=== PATIENT | female | born 1985 | race Caucasian/White ===

== ENCOUNTER 2017-02-28 19:02 | Emergency (ER) ==
[2017-02-28 19:09] VITALS: BP 127/86; TEMP 98.6; BMI 31.6
[2017-02-28] MEDS ORDERED: DECADRON 4 MG/ML SDV IM STA (19:17)
[2017-02-28] MEDS ORDERED: ZOFRAN 4 MG/2 ML IM STA (19:17)
[2017-02-28] MEDS ORDERED: TORADOL IM STA (19:17)
[2017-02-28] MEDS ORDERED: DILAUDID 2 MG/ML SYRINGE IM STA (19:17)
--- NOTE | 2017-02-28 19:21 | ED.PDOC ---
General ED Provider: Dr. DAVID SEARS-ER Chief Complaint: Back Pain Stated Complaint: i got out of bed and my back hurts and goes down both legs-hx of spinal stenosis Time Seen by Physician: 19:19 Mode of Arrival: Walk-In Information Source: Patient Exam Limitations: No limitations Primary Care Provider: DAVID SEARS Nursing and Triage Documentation Reviewed and Agree: Yes Musculoskeletal Complaint Exam - Back Pain Complaint/Exam Mechanism of Injury: Reports: No known trauma Onset/Duration: several days Symptoms Are: Still present Timing: Constant Episodes Lasting: Days Initial Severity: Mild Current Severity: Moderate Location: Reports: Discrete Character: Reports: Dull, Aching, Spasmodic, Stiffness Aggravating: Reports: Movements, Lifting, Bending Alleviating: Reports: None Associated Signs and Symptoms: Reports: Numbness. Denies: Swelling, Redness, Bruising, Fever, Weakness, Tingling, Abdominal pain, Flank pain, Bladder incontinence, Bowel incontinence, Weight loss Related History: Reports: Previous back injury AAA Risk Factors: Reports: None Cauda Equina Risk Factors: Reports: None Epidural Abcess Risk Factors: Reports: None Related Surgical History: Reports: None Focal Tenderness: Yes Paraspinal Muscle Tenderness: Yes Paraspinal Muscle Spasm: No Scoliosis: No Lordosis: No Kyphosis: No SLR Test: Right Negative, Left Negative Hip Motion Testing Pain: Right Negative, Left Negative Focal Weakness: Present: None Focal Sensory Loss: Present: None Gait: Present: Abnormal Differential Diagnoses: Herniated Disk Review of Systems - Review Of Systems Constitutional: Reports: No symptoms Eyes: Reports: No symptoms Ears, Nose, Mouth, Throat: Reports: No symptoms Respiratory: Reports: No symptoms Cardiac: Reports: No symptoms GI: Reports: No symptoms : Reports: No symptoms Musculoskeletal: Reports: Back pain, Muscle pain Skin: Reports: No symptoms Neurological: Reports: No symptoms Endocrine: Reports: No symptoms Hematologic/Lymphatic: Reports: No symptoms All Other Systems: Reviewed and Negative Past Medical History - Past Medical History Previously Healthy: Yes Endocrine: Reports: None Cardiovascular: Reports: None Respiratory: Reports: None Hematological: Reports: None Gastrointestinal: Reports: None Genitourinary: Reports: None Neuro/Psych: Reports: Migraine Musculoskeletal: Reports: Other (Fibromyalgia ) Cancer: Reports: None Last Menstrual Period: 2 WEEKS AGO - Surgical History General Surgical History: Reports: Tonsillectomy - Family History Family History: Reports: Other (father in severe mva) - Social History Smoking Status: Never smoker Hx Substance Use: No Alcohol Screening: None Lives: With family - Immunizations Tetanus Shot up to Date: (UNKNOWN) Physical Exam - Physical Exam Appearance: Well-appearing, No pain distress, Well-nourished Pain Distress: Moderate Eyes: RAMON, EOMI, Conjunctiva clear ENT: Ears normal, Nose normal, Oropharynx normal Neck: Supple Respiratory: Airway patent, Breath sounds clear, Breath sounds equal, Respirations nonlabored Cardiovascular: RRR, Pulses normal, No rub, No murmur GI/: Soft, Nontender, No masses, Bowel sounds normal, No Organomegaly Musculoskeletal: Limited ROM Skin: Warm, Dry, Normal color Neurological: Sensation intact, Motor intact, Reflexes intact, Cranial nerves intact, Alert, Oriented Psychiatric: Affect appropriate, Mood appropriate Critical Care Note - Critical Care Note Total Time (mins): 0 Course - Course Orders, Labs, Meds: Orders Category Date Time Status Dexamethasone 4 mg/ml Inj [Decadron 4 mg/ml Sdv] MEDS 02/28/17 19:17 Stat 4 mg IM ONCE STA Hydromorphone HCl/Pf [Dilaudid 2 mg/ml Syringe] MEDS 02/28/17 19:17 Stat 2 mg IM ONCE STA Ketorolac Tromethamine [Toradol] MEDS 02/28/17 19:17 Stat 60 mg IM ONCE STA Ondansetron HCl/Pf [Zofran 4 mg/2 ml] MEDS 02/28/17 19:17 Stat 4 mg IM ONCE STA Medications Generic Name Dose Route Start Last Admin Trade Name Freq PRN Reason Stop Dose Admin Dexamethasone Sodium Phosphate 4 mg 02/28/17 19:17 Decadron 4 Mg/Ml Sdv IM 02/28/17 19:18 ONCE STA Hydromorphone HCl 2 mg 02/28/17 19:17 Dilaudid 2 Mg/Ml Syringe IM 02/28/17 19:18 ONCE STA Ketorolac Tromethamine 60 mg 02/28/17 19:17 Toradol IM 02/28/17 19:18 ONCE STA Ondansetron HCl 4 mg 02/28/17 19:17 Zofran 4 Mg/2 Ml IM 02/28/17 19:18 ONCE STA Vital Signs: Temp Pulse Resp BP Pulse Ox 02/28/17 19:03 98.6 F 102 H 18 127/86 98 Departure - Departure Time of Disposition: 19:20 Disposition: HOME SELF-CARE Discharge Problem: Stenosis, spinal, lumbar Instructions: Lumbar Spinal Stenosis (ED) Condition: Good Pt referred to PMD for follow-up: Yes Additional Instructions: medrol dose pack--norco 7.5mg q 4hrs prn pain #15---call my office tomorrow to arrange neurosurgery appt Allergies/Adverse Reactions: Allergies sulfamethoxazole [From Bactrim] Adverse Reaction (Verified 02/28/17 19:09) trimethoprim [From Bactrim] Adverse Reaction (Verified 02/28/17 19:09) Home Medications: Ambulatory Orders 1 [No Reported Medications] 02/28/17 Disposition Discussed With: Patient, Family
== END 2017-02-28 19:45 | disposition home or self-care (01) ==
LOC: ED 19:02
DX: M48.06 Spinal stenosis, lumbar region (principal)
CPT/HCPCS: 96372; 99282

== ENCOUNTER 2017-05-15 21:35 | Emergency (ER) ==
[2017-05-15 21:38] VITALS: BP 125/85; TEMP 97.5; BMI 31.9
[2017-05-15 21:58] LABS: ADD URINE MICROSCOPIC YES; BILIRUBIN,URINE Negative (NEGATIVE); KETONES,URINE Negative (NEGATIVE); LEUKOCYTE ESTERASE ,URINE 3+ (NEGATIVE); NITRITE,URINE Negative (NEGATIVE); PH,URINE 6.5 (5-9); PROTEIN,URINE Negative (NEGATIVE); URINE, BLOOD 2+ (NEGATIVE)
[2017-05-15 21:59] LABS: BACTERIA,URINE 2+ (NOT PRESENT)
[2017-05-15] MEDS ORDERED: LEVAQUIN PO STA (22:10)
[2017-05-15] MEDS ORDERED: PYRIDIUM PO STA (22:10)
--- NOTE | 2017-05-15 22:16 | ED.PDOC ---
General ED Provider: Dr. ANA MARIA HORTON Chief Complaint: Non-specific Complaint Stated Complaint: Pateint state she had a hysterectomy on week ago. One day post op she told the nurse that she had burning bud did not pay attention to her. She has been taking [place] but is now out with the last one today. Time Seen by Physician: 22:16 Mode of Arrival: Walk-In Information Source: Patient Primary Care Provider: DAVID SEARS Nursing and Triage Documentation Reviewed and Agree: Yes Complaint Exam - UTI Female Complaint/Exam Patient Complains of: Reports: Painful urination Onset/Duration: 1 week ago Symptoms Are: Still present Timing: Constant Initial Severity: Moderate Current Severity: Moderate Location of Pain: Reports: Suprapubic Patient Rh Status: Unknown Related History: Reports: Similar episode Related Surgical History: Reports: None CVA Tenderness: No Suprapubic Tenderness: Yes Differential Diagnoses: Ureteral Calculus Review of Systems - Review Of Systems Constitutional: Reports: No symptoms Eyes: Reports: No symptoms Ears, Nose, Mouth, Throat: Reports: No symptoms Respiratory: Reports: No symptoms Cardiac: Reports: No symptoms GI: Reports: No symptoms : Reports: Burning, Dysuria, Frequency, Pain, Urgency Musculoskeletal: Reports: Back pain Skin: Reports: No symptoms Neurological: Reports: Anxiety Endocrine: Reports: No symptoms Hematologic/Lymphatic: Reports: No symptoms All Other Systems: Reviewed and Negative Past Medical History - Past Medical History Previously Healthy: Yes Endocrine: Reports: None Cardiovascular: Reports: None Respiratory: Reports: None Hematological: Reports: None Gastrointestinal: Reports: None Genitourinary: Reports: None Neuro/Psych: Reports: Migraine Musculoskeletal: Reports: Other (Fibromyalgia ) Cancer: Reports: None Last Menstrual Period: NONE - Surgical History General Surgical History: Reports: Hysterectomy (one week ago), Tonsillectomy - Family History Family History: Reports: Other (father in severe mva) - Social History Smoking Status: Never smoker Hx Substance Use: No Alcohol Screening: None - Immunizations Tetanus Shot up to Date: Yes Physical Exam - Physical Exam Appearance: Ill-appearing Ill-appearing: Mild Pain Distress: Moderate Neck: Supple Respiratory: Airway patent, Breath sounds clear, Breath sounds equal, Respirations nonlabored Cardiovascular: RRR, Pulses normal, No rub, No murmur GI/: Soft, Tender Musculoskeletal: Normal strength, ROM intact, No edema, No calf tenderness Skin: Warm, Dry, Normal color Neurological: Sensation intact, Motor intact, Reflexes intact, Cranial nerves intact, Alert, Oriented Psychiatric: Anxious Critical Care Note - Critical Care Note Total Time (mins): 0 Course - Course Orders, Labs, Meds: Lab Review 05/15/17 21:56 Urine Color Yellow Urine Clarity Clear Urine pH 6.5 Ur Specific [place] 1.025 Urine Protein Negative Urine Glucose (UA) Negative Urine Ketones Negative Urine Blood 2+ Urine Nitrite Negative Urine Bilirubin Negative Urine Urobilinogen 0.2 Ur Leukocyte Esterase 3+ Urine Microscopic RBC 10-20 Urine Microscopic WBC 50-100 Ur Squamous Epith Cells 5-10 Urine Bacteria 2+ Orders Category Date Time Status URINALYSIS C & S IF INDICATED Stat LAB 05/15/17 21:56 Completed URINE CULTURE Stat LAB 05/15/17 21:56 Received Ed After Hour Supply Med [Ed After Hours Supply Med MEDS 05/15/17 22:48 Discontinued Sent Home] 1 each PO ONCE ONE Hydrocodone Bit/Acetaminophen [[place] 7.5-325] MEDS 05/15/17 22:54 Discontinued 2 tab .ROUTE .STK-MED ONE Levofloxacin [Levaquin] MEDS 05/15/17 22:10 Discontinued 500 mg PO ONCE STA Phenazopyridine HCl [Pyridium] MEDS 05/15/17 22:10 Discontinued 100 mg PO ONCE STA Medications Discontinued Medications Generic Name Dose Route Start Last Admin Trade Name Manju PRN Reason Stop Dose Admin Levofloxacin 500 mg 05/15/17 22:10 05/15/17 22:34 Levaquin PO 05/15/17 22:11 500 mg ONCE STA Administration Miscellaneous Information 1 each 05/15/17 22:48 05/15/17 22:55 Ed After Hours Supply Med Sent Home PO 05/15/17 22:49 Not Given ONCE ONE Protocol Phenazopyridine HCl 100 mg 05/15/17 22:10 05/15/17 22:33 Pyridium PO 05/15/17 22:11 100 mg ONCE STA Administration Vital Signs: Temp Pulse Resp BP Pulse Ox 05/15/17 21:35 97.5 F L 73 18 125/85 98 Departure - Departure Time of Disposition: 22:19 Disposition: HOME SELF-CARE Discharge Problem: UTI (urinary tract infection) Qualifiers: Urinary tract infection type: acute cystitis Hematuria presence: without hematuria Qualified Code(s): N30.00 - Acute cystitis without hematuria Instructions: Urinary Tract Infection in Women (ED) Condition: Fair Pt referred to PMD for follow-up: Yes Prescriptions: Hydrocodone Bit/Acetaminophen [[place] 7.5-325] 1 each PO Q6HR PRN #20 tablet PRN Reason: Severe Pain Levofloxacin [Levaquin] 500 mg PO ONCE #7 tablet Phenazopyridine HCl [Pyridium] 100 mg PO TID #10 tablet Sennosides [Senna] 8.6 mg PO DAILY #30 tablet Allergies/Adverse Reactions: Allergies sulfamethoxazole [From Bactrim] Adverse Reaction (Verified 02/28/17 19:09) trimethoprim [From Bactrim] Adverse Reaction (Verified 02/28/17 19:09) Home Medications: Ambulatory Orders Hydrocodone Bit/Acetaminophen [[place] 7.5-325] 1 each PO Q6HR PRN #20 tablet 05/21 Levofloxacin [Levaquin] 500 mg PO ONCE #7 tablet 05/15/17 Phenazopyridine HCl [Pyridium] 100 mg PO TID #10 tablet 05/15/17 Sennosides [Senna] 8.6 mg PO DAILY #30 tablet 05/15/17 Disposition Discussed With: Patient, Family
[2017-05-15] MEDS ORDERED: ED AFTER HOURS SUPPLY MED SENT HOME PO ONE (22:48)
[2017-05-15] MEDS ORDERED: NORCO 7.5-325 ONE (22:54)
== END 2017-05-15 22:50 | disposition home or self-care (01) ==
LOC: ED 21:35
DX: N30.00 Acute cystitis without hematuria (principal); Z98.890 Other specified postprocedural states
CPT/HCPCS: 81001; 87086; 96372; 99283

== ENCOUNTER 2017-08-10 02:51 | Emergency (ER) ==
[2017-08-10 03:06] VITALS: BP 122/76; TEMP 97.5; BMI 30.9
[2017-08-10] MEDS ORDERED: PHENERGAN 25 MG/ML VIAL IM STA (03:13)
[2017-08-10] MEDS ORDERED: DILAUDID 2 MG/ML SYRINGE IM STA (03:13)
[2017-08-10] MEDS ORDERED: TORADOL IM STA (03:14)
--- NOTE | 2017-08-10 03:17 | ED.PDOC ---
General ED Provider: Dr. DAVID SEARS-ER Chief Complaint: Headache Stated Complaint: ismael got a migraine angel=---ismael had them for years--this one is no different Time Seen by Physician: 03:00 Mode of Arrival: Walk-In Information Source: Patient Exam Limitations: No limitations Primary Care Provider: DAVID ESARS Nursing and Triage Documentation Reviewed and Agree: Yes Reviewed sepsis parameters & appropriate labs ordered?: Yes System Inflammatory Response Syndrome: Not Applicable Sepsis Protocol: For patient's 13 years and over: Temp is 96.8 and below OR 101 and greater Pulse >90 BPM Resp >20/minute Acutely Altered Mental Status Are patient's symptoms suggestive of a new infection, such as: -Pneumonia -Skin, Soft Tissue -Endocarditis -UTI -Bone, Joint Infection -Implantable Device -Acute Abdominal Infection -Wound Infection -Meningitis -Blood Stream Catheter Infection -Unknown Neurological Complaint Exam - Headache Complaint/Exam Onset: Gradual Duration: several hours Symptoms Are: Still present Timing: Constant Worst Headache Ever: No Initial Severity: Mild Current Severity: Moderate Location: Diffuse Character: Reports: Dull, Throbbing, Typical headache, Migraine Aggravating: Reports: None Alleviating: Reports: None Associated Signs and Symptoms: Reports: Nausea. Denies: Dizziness, Seizure, Vomiting, Sinus pressure, Fever, Neck stiffness, Decreased LOC, Visual changes Related History: Reports: Similar episode Related Surgical History: Reports: None SAH Risk Factors: Reports: None Meningitis Risk Factors: Reports: None SDH Risk Factors: Reports: None Temporal Arteritis Risk Factors: Reports: Female, Normal Head CT Within Last 12 Months: No Fundoscopic Exam: Present: Normal Findings Papilledema Present: No Temporal Artery Tenderness: Present: None Sinus Tenderness: Present: None TMJ Tenderness: Present: None Meningeal Signs Positive: No Pain on Passive Flexion-Positive Kernig's: No ROM Limited In: No Limitiations Focal Weakness: Present: None Focal Sensory Loss: Present: None Gait: Normal Nystagmus Present: No Gag Reflex Present: Yes [id number]: Normal Findings Romberg Test Positive: No Babinski Sign: Negative Right, Negative Left Heel to Toe Normal: Yes Differential Diagnoses: Migraine Review of Systems - Review Of Systems Constitutional: Reports: No symptoms Eyes: Reports: No symptoms Ears, Nose, Mouth, Throat: Reports: No symptoms Respiratory: Reports: No symptoms Cardiac: Reports: No symptoms GI: Reports: Nausea : Reports: No symptoms Musculoskeletal: Reports: No symptoms Skin: Reports: No symptoms Neurological: Reports: Headache Endocrine: Reports: No symptoms Hematologic/Lymphatic: Reports: No symptoms All Other Systems: Reviewed and Negative Past Medical History - Past Medical History Previously Healthy: Yes Endocrine: Reports: None Cardiovascular: Reports: None Respiratory: Reports: None Hematological: Reports: None Gastrointestinal: Reports: None Genitourinary: Reports: None Neuro/Psych: Reports: Migraine Musculoskeletal: Reports: Other (Fibromyalgia ) Cancer: Reports: None Last Menstrual Period: PT HAS HAD A HYSTERECTOMY - Surgical History General Surgical History: Reports: Hysterectomy (one week ago), Tonsillectomy - Family History Family History: Reports: Other (father in severe mva) - Social History Smoking Status: Never smoker Hx Substance Use: No Alcohol Screening: None Lives: With family - Immunizations Tetanus Shot up to Date: (UNKNOWN) Physical Exam - Physical Exam Appearance: Well-appearing Pain Distress: Moderate Eyes: RAMON ENT: Ears normal, Nose normal, Oropharynx normal Neck: Supple Respiratory: Airway patent Cardiovascular: RRR GI/: Soft, Nontender, No masses, Bowel sounds normal, No Organomegaly Musculoskeletal: Normal strength, ROM intact, No edema, No calf tenderness Skin: Warm, Dry, Normal color Neurological: Sensation intact, Motor intact, Reflexes intact, Cranial nerves intact, Alert, Oriented Psychiatric: Affect appropriate, Mood appropriate Re-Evaluation - Re-Evaluation Time of Re-Evaluation: 03:45 Status: Unchanged Vital Signs Stable: Yes Pain Level: 0 Appearance: NAD Lungs: Clear Skin: Warm and Dry Neuro: Alert and Oriented X3 CV: RRR Critical Care Note - Critical Care Note Total Time (mins): 0 Course - Course Orders, Labs, Meds: Orders Category Date Time Status Hydromorphone HCl/Pf [Dilaudid 2 mg/ml Syringe] MEDS 08/10/17 03:13 Discontinued 2 mg IM ONCE STA Ketorolac Tromethamine [Toradol] MEDS 08/10/17 03:14 Stat 60 mg IM ONCE STA Promethazine HCl [Phenergan 25 mg/ml Vial] MEDS 08/10/17 03:13 Discontinued 25 mg IM ONCE STA Medications Generic Name Dose Route Start Last Admin Trade Name Freq PRN Reason Stop Dose Admin Ketorolac Tromethamine 60 mg 08/10/17 03:14 Toradol IM 08/10/17 03:15 ONCE STA Discontinued Medications Generic Name Dose Route Start Last Admin Trade Name Manju PRN Reason Stop Dose Admin Hydromorphone HCl 2 mg 08/10/17 03:13 Dilaudid 2 Mg/Ml Syringe IM 08/10/17 03:14 ONCE STA Promethazine HCl 25 mg 08/10/17 03:13 Phenergan 25 Mg/Ml Vial IM 08/10/17 03:14 ONCE STA Vital Signs: Temp Pulse Resp BP Pulse Ox 08/10/17 02:52 97.5 F L 80 18 122/76 98 Departure - Departure Time of Disposition: 03:17 Disposition: HOME SELF-CARE Discharge Problem: Migraine Qualifiers: Migraine type: unspecified Status migrainosus presence: without status migrainosus Intractability: not intractable Qualified Code(s): G43.909 - Migraine, unspecified, not intractable, without status migrainosus Instructions: Migraine Headache (ED) Condition: Good Pt referred to PMD for follow-up: Yes IPMP verified?: No Additional Instructions: f/u pcp prn Allergies/Adverse Reactions: Allergies codeine Adverse Reaction (Verified 08/10/17 03:00) Abdominal Pain sulfamethoxazole [From Bactrim] Adverse Reaction (Verified 02/28/17 19:09) trimethoprim [From Bactrim] Adverse Reaction (Verified 02/28/17 19:09) Home Medications: Ambulatory Orders 1 [No Reported Medications] 08/10/17 Disposition Discussed With: Patient, Family
== END 2017-08-10 04:05 | disposition home or self-care (01) ==
LOC: ED 02:51
DX: G43.909 Migraine, unspecified, not intractable, without status migrainosus (principal)
CPT/HCPCS: 96372; 99282

== ENCOUNTER 2017-08-17 10:25 | Outpatient (CLI) ==
--- NOTE | 2017-08-17 12:43 | DI ---
EXAM: Chest two view, frontal and lateral views. HISTORY: Fever, cough. COMPARISON: None available. FINDINGS: The heart size is normal. There is no pulmonary vascular congestion. The lungs are clear . No pleural effusion or pneumothorax is seen. No acute osseous abnormality identified. Cholecyste ctomy clips noted. IMPRESSION: No acute cardiopulmonary process.
== END 2017-08-17 10:26 | disposition home or self-care (01) ==
LOC: RAD 10:25
PROVIDERS: ATTEND Family Medicine
DX: R05 Cough (principal); R50.9 Fever, unspecified
CPT/HCPCS: 36415; 80053; 83605; 84145; 85025; 87040

== ENCOUNTER 2017-12-31 23:30 | Emergency (ER) | payer OTHER ==
[2017-12-31 23:47] VITALS: BP 122/78; TEMP 97.2; BMI 31.0
[2017-12-31] MEDS ORDERED: ROCEPHIN IM STA (23:48)
[2017-12-31] MEDS ORDERED: NORCO 7.5-325 PO STA (23:48)
[2017-12-31] MEDS ORDERED: LIDOCAINE HCL 1% SDV IM STA (23:48)
--- NOTE | 2017-12-31 23:53 | ED.PDOC ---
General ED Provider: Dr. DAVID SEARS-ER Chief Complaint: Earache Stated Complaint: my ear hurts Time Seen by Physician: 23:50 Mode of Arrival: Walk-In Information Source: Patient Exam Limitations: No limitations Primary Care Provider: DAVID SEARS Nursing and Triage Documentation Reviewed and Agree: Yes Does patient meet sepsis criteria?: No System Inflammatory Response Syndrome: Not Applicable Sepsis Protocol: For patient's 13 years and over: Temp is 96.8 and below OR 101 and greater Pulse >90 BPM Resp >20/minute Acutely Altered Mental Status Are patient's symptoms suggestive of a new infection, such as: -Pneumonia -Skin, Soft Tissue -Endocarditis -UTI -Bone, Joint Infection -Implantable Device -Acute Abdominal Infection -Wound Infection -Meningitis -Blood Stream Catheter Infection -Unknown EENT Complaint Exam - Ear Complaint/Exam Onset/Duration: 24hrs Symptoms Are: Still present Timing: Constant Initial Severity: Mild Current Severity: Mild Character: Reports: Dull pain, Aching pain Aggravating: Reports: Tugging on ear Alleviating: Reports: None Associated Signs and Symptoms: Reports: URI symptoms. Denies: Ear trauma, Ear swelling, Discharge, Fever, Hearing loss, Bleeding, Sore throat, Headache, Foreign body sensation, Rash, Pain to external ear, Pain to external face Related History: Reports: Similar Episode Ear Surgical History: None Vesicles to External Pinna: No TMJ Tenderness: Right Tympanic Membrane: Erythema, Dullness Differential Diagnoses: Otitis Media Review of Systems - Review Of Systems Constitutional: Reports: No symptoms Eyes: Reports: No symptoms Ears, Nose, Mouth, Throat: Reports: Ear pain Respiratory: Reports: No symptoms Cardiac: Reports: No symptoms GI: Reports: No symptoms : Reports: No symptoms Musculoskeletal: Reports: No symptoms Skin: Reports: No symptoms Neurological: Reports: No symptoms Endocrine: Reports: No symptoms Hematologic/Lymphatic: Reports: No symptoms All Other Systems: Reviewed and Negative Past Medical History - Past Medical History Previously Healthy: Yes Endocrine: Reports: None Cardiovascular: Reports: None Respiratory: Reports: None Hematological: Reports: None Gastrointestinal: Reports: None Genitourinary: Reports: None Neuro/Psych: Reports: Migraine Musculoskeletal: Reports: Other (Fibromyalgia ) Cancer: Reports: None Last Menstrual Period: PT HAS HAD A HYSTERECTOMY - Surgical History General Surgical History: Reports: Hysterectomy (one week ago), Tonsillectomy - Family History Family History: Reports: Other (father in severe mva) - Social History Smoking Status: Never smoker Hx Substance Use: No Alcohol Screening: None - Immunizations Tetanus Shot up to Date: No Physical Exam - Physical Exam Appearance: Well-appearing, No pain distress, Well-nourished Pain Distress: Moderate Eyes: RAMON, EOMI, Conjunctiva clear ENT: Ears normal, Nose normal, Oropharynx normal Neck: Supple Respiratory: Airway patent, Breath sounds clear, Breath sounds equal, Respirations nonlabored Cardiovascular: RRR, Pulses normal, No rub, No murmur GI/: Soft, Nontender, No masses, Bowel sounds normal, No Organomegaly Musculoskeletal: Normal strength, ROM intact, No edema, No calf tenderness Skin: Warm, Dry, Normal color Neurological: Sensation intact, Motor intact, Reflexes intact, Cranial nerves intact, Alert, Oriented Psychiatric: Affect appropriate, Mood appropriate Critical Care Note - Critical Care Note Total Time (mins): 0 Course - Course Orders, Labs, Meds: Orders Category Date Time Status Ceftriaxone Sodium [Rocephin] MEDS 12/31/17 23:48 Discontinued 1 gm IM ONCE STA Hydrocodone Bit/Acetaminophen [[place] 7.5-325] MEDS 12/31/17 23:48 Discontinued 1 tab PO ONCE STA Lidocaine HCl/Pf [Lidocaine HCl 1% Sdv] MEDS 12/31/17 23:48 Discontinued 2.1 ml IM ONCE STA Medications Discontinued Medications Generic Name Dose Route Start Last Admin Trade Name Freq PRN Reason Stop Dose Admin Hydrocodone Bitart/Acetaminophen 1 tab 12/31/17 23:48 [place] 7.5-325 PO 12/31/17 23:49 ONCE STA Ceftriaxone Sodium 1 gm 12/31/17 23:48 Rocephin IM 12/31/17 23:49 ONCE STA Lidocaine HCl 2.1 ml 12/31/17 23:48 Lidocaine Hcl 1% Sdv IM 12/31/17 23:49 ONCE STA Vital Signs: Temp Pulse Resp BP Pulse Ox 12/31/17 23:33 97.2 F L 69 18 122/78 98 Departure - Departure Time of Disposition: 23:52 Disposition: HOME SELF-CARE Discharge Problem: Ear problem Instructions: Ear Infection (ED) Condition: Good Pt referred to PMD for follow-up: No IPMP verified?: No Additional Instructions: augmentin 875mg bid x 7 days---norco 7.5mg q 4hrs prn pain #10--f/u with pcp to recheck ear Allergies/Adverse Reactions: Allergies codeine Adverse Reaction (Verified 12/31/17 23:42) Abdominal Pain sulfamethoxazole [From Bactrim] Adverse Reaction (Verified 12/31/17 23:42) trimethoprim [From Bactrim] Adverse Reaction (Verified 12/31/17 23:42) Home Medications: Ambulatory Orders Escitalopram Oxalate [Lexapro] 20 mg PO DAILY 12/31/17 Disposition Discussed With: Patient, Family
== END 2018-01-01 00:27 | disposition home or self-care (01) ==
LOC: ED 23:30
DX: H66.90 Otitis media, unspecified, unspecified ear (principal)
CPT/HCPCS: 96372; 99282

== ENCOUNTER 2018-09-07 08:21 | Emergency (ER) ==
[2018-09-07 08:25] VITALS: BP 120/76; TEMP 99.1; BMI 31.6
--- NOTE | 2018-09-07 09:25 | DI ---
EXAM: CHEST FRONTAL AND LATERAL VIEWS HISTORY: Cough. COMPARISON: 08/17/2017 FINDINGS: Heart size and mediastinal contour remain within normal limits. No acute infiltrates. Normal vascularity with no pleural fluid or pneumothorax. The bony thorax has no acute finding. IMPRESSION: No acute process.
--- NOTE | 2018-09-07 10:14 | ED.PDOC ---
General ED Provider: Dr. ELBA SINGH Chief Complaint: Respiratory Complaint Stated Complaint: flu like symptoms Time Seen by Physician: 08:30 Mode of Arrival: Walk-In Information Source: Patient Exam Limitations: No limitations Primary Care Provider: DAVID SEARS Nursing and Triage Documentation Reviewed and Agree: Yes Does patient meet sepsis criteria?: No System Inflammatory Response Syndrome: Not Applicable Sepsis Protocol: For patient's 13 years and over: Temp is 96.8 and below OR 101 and greater Pulse >90 BPM Resp >20/minute Acutely Altered Mental Status Are patient's symptoms suggestive of a new infection, such as: -Pneumonia -Skin, Soft Tissue -Endocarditis -UTI -Bone, Joint Infection -Implantable Device -Acute Abdominal Infection -Wound Infection -Meningitis -Blood Stream Catheter Infection -Unknown EENT Complaint Exam - Throat Complaint/Exam Onset/Duration: 1 week Symptoms Are: Resolved Timimg: Intermittent Initial Severity: Moderate Current Severity: Mild Aggravating: Reports: Eating Alleviating: Reports: None Associated Signs and Symptoms: Reports: Chills, Cough, Nasal congestion. Denies : Fever, Dysphagia, Drooling, Foreign body sensation, Wheezing, Hoarseness, Sinus discomfort, Difficulty breathing, Lethargy, Irritability, Decreased activity, Vomiting, Diarrhea, Decreased hearing, Ear drainage Related History: Reports: Similar Episode Uvula Midline: Yes Aurora-tonsillar Fluctuence: No Scarlatinaform Rash Present: No Lesions: Absent: Lip, Gums, Tongue, Buccal Mucosa, Pharynx Exanthem: Absent: Lip, Gums, Tongue, Buccal Mucosa, Pharynx Vesicles: Absent: Lip, Gums, Tongue, Buccal Mucosa, Pharynx Stridor Present: No Sinus Tenderness Present: No Tonsillar Hypertrophy Present: No Tonsillar Exudate Present: No Aurora-tonsillar Swelling Present: No Adenopathy Present: No Splenomegaly Present: No Differential Diagnoses: Pharyngitis Review of Systems - Review Of Systems Constitutional: Reports: No symptoms Eyes: Reports: No symptoms Ears, Nose, Mouth, Throat: Reports: Throat pain Respiratory: Reports: Cough Cardiac: Reports: No symptoms GI: Reports: No symptoms : Reports: No symptoms Musculoskeletal: Reports: No symptoms Skin: Reports: No symptoms Neurological: Reports: No symptoms Endocrine: Reports: No symptoms Hematologic/Lymphatic: Reports: No symptoms All Other Systems: Reviewed and Negative Past Medical History - Past Medical History Previously Healthy: Yes Endocrine: Reports: None Cardiovascular: Reports: None Respiratory: Reports: None Hematological: Reports: None Gastrointestinal: Reports: None Genitourinary: Reports: None Neuro/Psych: Reports: Migraine Musculoskeletal: Reports: Other (Fibromyalgia ) Cancer: Reports: None Last Menstrual Period: n/a - Surgical History General Surgical History: Reports: Hysterectomy (one week ago), Tonsillectomy - Family History Family History: Reports: Other (father in severe mva) - Social History Smoking Status: Never smoker Hx Substance Use: No Alcohol Screening: None Physical Exam - Physical Exam Appearance: Well-appearing, No pain distress, Well-nourished Eyes: RAMNO, EOMI, Conjunctiva clear ENT: Ears normal, Nose normal, Erythema Respiratory: Airway patent, Breath sounds clear, Breath sounds equal, Respirations nonlabored Cardiovascular: RRR, Pulses normal, No rub, No murmur GI/: Soft, Nontender, No masses, Bowel sounds normal, No Organomegaly Musculoskeletal: Normal strength, ROM intact, No edema, No calf tenderness Skin: Warm, Dry, Normal color Neurological: Sensation intact, Motor intact, Reflexes intact, Cranial nerves intact, Alert, Oriented Psychiatric: Affect appropriate, Mood appropriate Critical Care Note - Critical Care Note Total Time (mins): 0 Course - Course Hematology/Chemistry: 09/07/18 08:40 09/07/18 08:40 Orders, Labs, Meds: Lab Review 09/07/18 09/07/18 09/07/18 08:30 08:40 08:40 WBC 13.57 H RBC 4.77 Hgb 13.5 Hct 41.6 MCV 87.2 MCH 28.3 MCHC 32.5 RDW Coeff of Héctor 13.0 Plt Count 243 Immature Gran % (Auto) 0.7 Neut % (Auto) 78.4 Lymph % (Auto) 14.5 [place] % (Auto) 5.1 Eos % (Auto) 0.7 Baso % (Auto) 0.6 Immature Gran # (Auto) 0.1 Neut # (Auto) 10.6 H Lymph # (Auto) 2.0 [place] # (Auto) 0.7 Eos # (Auto) 0.1 Baso # (Auto) 0.1 Sodium 141.7 Potassium 3.75 Chloride 106.9 Carbon Dioxide 25.6 Anion Gap 12.95 BUN 15.9 Creatinine 0.67 Estimated GFR (MDRD) 102.00 BUN/Creatinine Ratio 23.73 Glucose 94.3 Calcium 9.59 Total Bilirubin 0.63 AST 27.0 ALT 35.7 H Alkaline Phosphatase 78.8 Total Protein 8.35 H Albumin 4.65 Globulin 3.70 Albumin/Globulin Ratio 1.25 Influ A Molecular Assay Negative by naat Influ B Molecular Assay Negative by naat Orders Category Date Time Status CBC W/ AUTO DIFF Stat LAB 09/07/18 08:40 Completed COMPREHENSIVE METABOLIC PANEL Stat LAB 09/07/18 08:40 Completed FLU A/B MOLECULAR Stat LAB 09/07/18 08:30 Completed MOLECULAR GROUP A STREP Stat LAB 09/07/18 08:30 Completed CHEST, 2 VIEWS PA & LAT Stat RADS 09/07/18 08:37 Completed Vital Signs: Temp Pulse Resp BP Pulse Ox 09/07/18 08:23 99.1 F 101 H 16 120/76 98 Departure - Departure Time of Disposition: 10:17 Disposition: HOME SELF-CARE Discharge Problem: Viral syndrome Pharyngitis Qualifiers: Pharyngitis/tonsillitis etiology: unspecified etiology Qualified Code(s): J02.9 - Acute pharyngitis, unspecified Instructions: Viral Syndrome (ED) Condition: Good Pt referred to PMD for follow-up: Yes IPMP verified?: No Additional Instructions: Please call your Family Physician as soon as possible to schedule a follow-up appointment. Allergies/Adverse Reactions: Allergies codeine Adverse Reaction (Verified 09/07/18 08:25) Abdominal Pain sulfamethoxazole [From Bactrim] Adverse Reaction (Verified 09/07/18 08:25) trimethoprim [From Bactrim] Adverse Reaction (Verified 09/07/18 08:25) Home Medications: Ambulatory Orders Cephalexin [Keflex] 500 mg PO Q8HR #21 capsule 09/07/18
== END 2018-09-07 10:57 | disposition home or self-care (01) ==
LOC: ED 08:21
DX: B34.9 Viral infection, unspecified (principal); J02.9 Acute pharyngitis, unspecified
CPT/HCPCS: 36415; 80053; 85025; 87502; 87651; 99283

== ENCOUNTER 2018-10-20 20:59 | Emergency (ER) ==
[2018-10-20 21:00] VITALS: BMI 31.6
[2018-10-20 21:07] VITALS: BP 123/84; TEMP 98.1
--- NOTE | 2018-10-20 21:36 | CT ---
EXAM: CT facial bones without contrast. HISTORY: Initial presentation for facial/nasal trauma. COMPARISON: Cervical spine MRI 11/17/2013. TECHNIQUE: Multiple axial images of the facial bones were obtained without contrast and were reforma tted in the sagittal and coronal planes. Three-dimensional reconstructed images were created on an [employer] workstation FINDINGS: Nondisplaced anterior right nasal bone fracture noted with adjacent soft tissue swelling. The bones of the face are otherwise intact without additional fracture. Polyp or retention cyst in the left maxillary sinus noted. The remainder of the paranasal sinuses in the visualized mastoid air cells are clear. Globes and intraorbital structures are intact. Scattered lymph nodes present bilaterally in the neck. The largest in the right level II measuring 1 cm short axis on axial image 8 which is mildly enlarged by size criteria but is stable from prior ce rvical spine MRI. IMPRESSION: Nondisplaced right nasal bone fracture.
[2018-10-20] MEDS ORDERED: NORCO 7.5-325 PO STA (21:37)
--- NOTE | 2018-10-20 21:40 | ED.PDOC ---
General ED Provider: Dr. DAVID SEARS-ER Chief Complaint: Nose Injury Stated Complaint: my nose was hit this am by a small child Time Seen by Physician: 21:00 Mode of Arrival: Walk-In Information Source: Patient, Family Exam Limitations: No limitations Primary Care Provider: DAVID SEARS Nursing and Triage Documentation Reviewed and Agree: Yes Does patient meet sepsis criteria?: No System Inflammatory Response Syndrome: Not Applicable Sepsis Protocol: For patient's 13 years and over: Temp is 96.8 and below OR 101 and greater Pulse >90 BPM Resp >20/minute Acutely Altered Mental Status Are patient's symptoms suggestive of a new infection, such as: -Pneumonia -Skin, Soft Tissue -Endocarditis -UTI -Bone, Joint Infection -Implantable Device -Acute Abdominal Infection -Wound Infection -Meningitis -Blood Stream Catheter Infection -Unknown Trauma/Injury Complaint Exam - Facial Injury Complaint/Exam Location of Pain: Reports: Nose Mechanism of Injury: Reports: Trauma Onset/Duration: 9 hrs Symptoms Are: Still present Onset of Pain: Reports: Immediate Initial Severity: Mild Current Severity: Mild Location: Reports: Discrete Character: Reports: Dull, Aching Aggravating: Reports: Movement Associated Signs and Symptoms: Denies: Swelling, Redness, Bruising, Numbness, Tingling, Fever, Polymyalgia, Weight loss, Visual defects, Tinnitus, Headache, Loss of consciousness Facial Findings: Present: Swelling, Ecchymosis Differential Diagnoses: Fracture Review of Systems - Review Of Systems Constitutional: Reports: No symptoms Eyes: Reports: No symptoms Ears, Nose, Mouth, Throat: Reports: Nose pain Respiratory: Reports: No symptoms Cardiac: Reports: No symptoms GI: Reports: No symptoms : Reports: No symptoms Musculoskeletal: Reports: No symptoms Skin: Reports: No symptoms Neurological: Reports: No symptoms Endocrine: Reports: No symptoms Hematologic/Lymphatic: Reports: No symptoms All Other Systems: Reviewed and Negative Past Medical History - Past Medical History Previously Healthy: Yes Endocrine: Reports: None Cardiovascular: Reports: None Respiratory: Reports: None Hematological: Reports: None Gastrointestinal: Reports: None Genitourinary: Reports: None Neuro/Psych: Reports: Migraine Musculoskeletal: Reports: Other (Fibromyalgia ) Cancer: Reports: None Last Menstrual Period: 2016 hyst - Surgical History General Surgical History: Reports: Hysterectomy (one week ago), Tonsillectomy - Family History Family History: Reports: Other (father in severe mva) - Social History Smoking Status: Never smoker Hx Substance Use: No Alcohol Screening: None - Immunizations Tetanus Shot up to Date: Yes Physical Exam - Physical Exam Appearance: Well-appearing, No pain distress, Well-nourished Eyes: RAMON, EOMI, Conjunctiva clear ENT: Rhinorrhea, Epistaxis Neck: Supple Respiratory: Airway patent, Breath sounds clear, Breath sounds equal, Respirations nonlabored Cardiovascular: RRR, Pulses normal, No rub, No murmur GI/: Soft, Nontender, No masses, Bowel sounds normal, No Organomegaly Musculoskeletal: Normal strength Skin: Warm, Dry, Normal color Neurological: Sensation intact, Motor intact, Reflexes intact, Cranial nerves intact, Alert, Oriented Psychiatric: Affect appropriate Interpretation - Radiology Interpretation Radiology Interpretation By: Radiologist Radiology Results: Positive Exam Interpreted: CT Scan Critical Care Note - Critical Care Note Total Time (mins): 0 Course - Course Orders, Labs, Meds: Orders Category Date Time Status Hydrocodone Bit/Acetaminophen [Aur[place] 7.5-325] MEDS 10/20/18 21:37 Discontinued 1 tab PO ONCE STA CT MAXILLOFACIAL W/O CONTRAST Stat RADS 10/20/18 21:12 Completed Medications Discontinued Medications Generic Name Dose Route Start Last Admin Trade Name Freq PRN Reason Stop Dose Admin Hydrocodone Bitart/Acetaminophen 1 tab 10/20/18 21:37 10/20/18 21:50 [place] 7.5-325 PO 10/20/18 21:38 1 tab ONCE STA Administration Vital Signs: Temp Pulse Resp BP Pulse Ox 10/20/18 21:00 98.1 F 76 20 123/84 99 Departure - Departure Time of Disposition: 21:39 Disposition: HOME SELF-CARE Discharge Problem: Nasal bone fracture Qualifiers: Encounter type: initial encounter Fracture type: closed Qualified Code(s): S02.2XXA - Fracture of nasal bones, initial encounter for closed fracture Instructions: Nasal Fracture (ED) Condition: Good Pt referred to PMD for follow-up: Yes IPMP verified?: No Additional Instructions: ice for 48hrs--norco 7.5mg q 4hrs prn pain #15---call my office in am to arrange ent referral Allergies/Adverse Reactions: Allergies codeine Adverse Reaction (Verified 10/20/18 21:06) Abdominal Pain sulfamethoxazole [From Bactrim] Adverse Reaction (Verified 10/20/18 21:07) Vomiting trimethoprim [From Bactrim] Adverse Reaction (Verified 10/20/18 21:07) Vomiting Home Medications: Ambulatory Orders Gabapentin 300 mg PO TID 10/20/18 Disposition Discussed With: Patient, Family
== END 2018-10-20 21:55 | disposition home or self-care (01) ==
LOC: ED 20:59
DX: S02.2XXA Fracture of nasal bones, initial encounter for closed fracture (principal); W50.0XXA Accidental hit or strike by another person, initial encounter
CPT/HCPCS: 99282